=== PATIENT | male | born 1995 | race African-American/Black ===

== ENCOUNTER 2017-02-23 05:45 | Emergency (ER) | payer MEDICAID ==
[~2017-02-23] VITALS: Ht 180.3 cm; Wt 118.0 kg
[2017-02-23 09:33] VITALS: BP 132/65
== END 2017-02-23 09:45 | disposition home or self-care (01) ==
LOC: ER 07:28
DX: R05 Cough (principal); I10 Essential (primary) hypertension; F17.200 Nicotine dependence, unspecified, uncomplicated
CPT/HCPCS: 71020; 99284; Z7610